=== PATIENT | male | born 1980 | race Caucasian/White ===

== ENCOUNTER 2016-10-27 22:43 | Emergency (ER) | payer OTHER ==
[~2016-10-27] VITALS: Ht 188 cm; Wt 151.0 kg
--- OUTSIDE RECORDS SUMMARY | 2016-10-27 22:50 | XMS REPORT ---
Author Author KRYSTEN BLAIR [facility], [place] eClinicalWorks Address Unknown Phone Unavailable Care Team Providers Care Leather Etcher Name Role Phone KRYSTEN BLAIR CP Unavailable Allergies, Adverse Reactions, Alerts Substance Reaction Event Type N.K.D.A. Info Not Available Non Drug Allergy Problems Problem Type Condition Code Onset Dates Condition Status Problem Seborrhea capitis 690.11 Active Assessment Tinea corporis B35.4 Active Problem Allergic rhinitis, cause unspecified 477.9 Active Assessment Skin infection L08.9 Active Medications Medication Code System Code Instructions Start Date End Date Status Dosage Bactrim DS [facility] [address]-93 800-160 MG Orally Twice a day December 22, 2015 January 01, 2016 1 tablet Diflucan [facility] [address]-22 100 MG Orally Once a day December 22, 2015December 1 tablet PredniSONE [facility] [address]-48 10 mg Orally twice a day December 22, 2015 December 27, 2015 1 tablet Loratadine [facility] [address]-38 10 MG Orally Once a day 1 tablet Procedures Procedure Coding System Code Date Office Visit, Est Pt., Level 3 CPT-4 09884 December 22, 2015 Vital Signs Date/Time: December 22, 2015 Temperature 99.1 F Weight 328.4 lbs Height 74 in BMI 42.16 Index Blood Pressure Diastolic 82 mmHg Blood Pressure Systolic 136 mmHg Cardiac Monitoring Heart Rate 92 bpm Results No Known Results Summary Purpose eClinicalWorks Submission
[2016-10-27] MEDS ORDERED: NS IV 1000 ML 1,000 ML IV ONE (22:56)
[2016-10-27 22:58] LABS: BASOPHILS % (AUTO) 0 % (0-10); EOSINOPHILS # (AUTO) 0.2 10^3/uL (0.0-0.3); EOSINOPHILS % (AUTO) 3 % (0-10); LYMPHOCYTES # (AUTO) 3.6 X 10^3 (1.0-4.0); LYMPHOCYTES % (AUTO) 46 % (12-44); MEAN CORPUSCULAR HEMOGLOBIN 31 PG (25-34); MEAN CORPUSCULAR HGB CONC 35 G/DL (32-36); MEAN CORPUSCULAR VOLUME 88 FL (80-99); MEAN PLATELET VOLUME 9.7 FL (7.4-10.4); MONOCYTES # (AUTO) 1.1 X 10^3 (0.0-1.0); MONOCYTES % (AUTO) 14 % (0-12); NEUTROPHILS % (AUTO) 38 % (42-75); PLATELET COUNT 211 10^3/uL (130-400); RED BLOOD COUNT 5.07 10^6/uL (4.35-5.85); RED CELL DISTRIBUTION WIDTH 12.9 % (10.0-14.5)
[2016-10-27] MEDS ORDERED: ASPIRIN 81 MG CHEW (CHILDREN'S ASA) PO ONE (23:00)
--- NOTE | 2016-10-27 23:00 | ED Chest Pain ---
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 Pt reports episode sharp/tingling CP at onset. Pt denies CP at this time. Pt reports having fever for past 2 days. Nursing Sepsis Screen: Possible Sepsis Risk Source: patient Exam Limitations: no limitations History of Present Illness Time seen by provider: 22:50 Initial Comments Here with chest tightness and difficulty breathing and over the last 30 minutes. Reports that he's had intermittent fevers over the last 2 days and he has nasal congestion and difficulty breathing related to that. Denies nausea or vomiting. Does feel hot currently and feels anxious. States he does have anxiety disorder. Timing/Duration: getting worse, changing over time, 2-3 days Severity/Quality: moderate, tightness Location: central Radiation: no radiation Activities at Onset: none Prior CP/Workup: no prior chest pain ASA po AUDIT MACHINE OPERATOR: No NTG SL AUDIT MACHINE OPERATOR: No Associated Symptoms: No abdominal pain, No back pain, diaphoresis fever/ chills nausea/vomiting shortness of breath Allergies and Home Medications Allergies Coded Allergies: nickel (Unverified Allergy, Unknown, 10/27/16) Home Medications No Active Prescriptions or Reported Meds Review of Systems Constitutional: see HPI chills fever EENTM: See HPI Nose Congestion Throat Pain Respiratory: Cough Shortness of Air Cardiovascular: See HPI Chest Pain (tightness) Palpitations Gastrointestinal: See HPIDenies Diarrhea, NauseaDenies Vomiting Genitourinary: No Symptoms Reported Musculoskeletal: no symptoms reported Skin: no symptoms reported Psychiatric/Neurological: No Symptoms Reported All Other Systems Reviewed Negative Unless Noted: Yes Past Pbptmni-Jsntjo-Leqawq Hx Patient Social History Alcohol Use: Occasionally Uses Recreational Drug Use: No Recent Foreign Travel: No Contact w/Someone Who Travel: No Recent Infectious Disease Expo: No Recent Hopitalizations: No Seasonal Allergies Seasonal Allergies: No Surgeries HX Surgeries: Yes (hernia repair) Respiratory Hx Respiratory Disorders: No Cardiovascular Hx Cardiac Disorders: No Neurological Hx Neurological Disorders: No Reproductive System Sexually Transmitted Disease: No Genitourinary Hx Genitourinary Disorders: No Gastrointestinal Hx Gastrointestinal Disorders: No Musculoskeletal Hx Musculoskeletal Disorders: No Endocrine Hx Endocrine Disorders: No HEENT HX ENT Disorders: No Cancer Hx Cancer: No Psychosocial Hx Psychiatric Problems: No Integumentary HX Skin/Integumentary Disorder: No Blood Transfusions Hx Blood Disorders: No Reviewed Nursing Assessment Reviewed/Agree w Nursing PMH: Yes Family Medical History Significant Family History: No Pertinent Family Hx Physical Exam Vital Signs Vital Sign - Last 12Hours 10/27/16 22:45 Temp 98.6 Pulse 117 Resp 18 B/P 160/103 Pulse Ox 99 O2 Delivery Room Air Capillary Refill : Less Than 3 Seconds General Appearance: No Apparent Distress WD/WN HEENT: PERRL/EOMI Pharyngeal Erythema (mild) Other (moderate bilateral nasal congestion with erythema and clear rhinorrhea) Neck: Non Tender Supple Respiratory: Lungs Clear Normal Breath Sounds Cardiovascular: No Murmur Tachycardia Gastrointestinal: Non Tender Soft Extremity: Normal Inspection Normal Range of Motion Non Tender No Calf Tenderness No Pedal Edema Neurologic/Psychiatric: Alert Oriented x3 Skin: Normal Color Warm/Dry Progress/Results/Core Measures Results/Orders Lab Results Laboratory Tests Test 10/27/16 22:50 Range/Units Activated Partial Thromboplast Time 29 24-35 SEC Alanine Aminotransferase (ALT/SGPT) 49 0-55 U/L Albumin 3.9 3.2-4.5 G/DL Alkaline Phosphatase 64 40-136 U/L Anion Gap 15 H 5-14 MMOL/L Aspartate Amino Transf (AST/SGOT) 37 H 5-34 U/L BUN/Creatinine Ratio 15 Basophils # (Auto) 0.0 0.0-0.1 10^3/uL Basophils (%) (Auto) 0 0-10 % Blood Urea Nitrogen 17 7-18 MG/DL C-Reactive Protein High Sensitivity 1.44 H 0.00-0.50 MG/DL Calcium Level 9.3 8.5-10.1 MG/DL Carbon Dioxide Level 23 21-32 MMOL/L Chloride Level 101 98-107 MMOL/L Creatinine 1.14 0.60-1.30 MG/DL D-Dimer 0.70 H 0.00-0.49 UG/ML Eosinophils # (Auto) 0.2 0.0-0.3 10^3/uL Eosinophils (%) (Auto) 3 0-10 % Estimat Glomerular Filtration Rate > 60 Glucose Level 121 H 70-105 MG/DL Hematocrit 45 40-54 % Hemoglobin 15.5 13.3-17.7 G/DL INR Comment 1.1 0.8-1.4 Lymphocytes # (Auto) 3.6 1.0-4.0 X 10^3 Lymphocytes (%) (Auto) 46 H 12-44 % Magnesium Level 2.4 1.8-2.4 MG/DL Mean Corpuscular Hemoglobin 31 25-34 PG Mean Corpuscular Hemoglobin Concent 35 32-36 G/DL Mean Corpuscular Volume 88 80-99 FL Mean Platelet Volume 9.7 7.4-10.4 FL Monocytes # (Auto) 1.1 H 0.0-1.0 X 10^3 Monocytes (%) (Auto) 14 H 0-12 % Myoglobin 63.6 10.0-92.0 NG/ML Neutrophils # (Auto) 3.0 1.8-7.8 X 10^3 Neutrophils (%) (Auto) 38 L 42-75 % Platelet Count 211 130-400 10^3/uL Potassium Level 3.6 3.6-5.0 MMOL/L Prothrombin Time 13.5 12.2-14.7 SEC Red Blood Count 5.07 4.35-5.85 10^6/uL Red Cell Distribution Width 12.9 10.0-14.5 % Sodium Level 139 135-145 MMOL/L Total Bilirubin 0.6 0.1-1.0 MG/DL Total Protein 7.5 6.4-8.2 G/DL Troponin I < 0.30 <0.30 NG/ML White Blood Count 8.0 4.3-11.0 10^3/uL Micro Results Microbiology 10/27/16 Influenza Types A,B Antigen ([facility]IR[facility]AL[facility]) - Final, Complete My Orders Orders-ENEDINA BREWER MD Cbc With Automated Diff (10/27/16 22:50) Magnesium (10/27/16 22:50) Chest 1 View, Ap/Pa Only (10/27/16 22:50) Ekg Tracing (10/27/16 22:50) Cardiac Profile 1 (10/27/16 22:50) Comprehensive Metabolic Panel (10/27/16 22:50) Myoglobin Serum (10/27/16 22:50) Protime With Inr (10/27/16 22:50) Partial Thromboplastin Time (10/27/16 22:50) O2 (10/27/16 22:50) Monitor-Rhythm Ecg Trace Only (10/27/16 22:50) Lipid Panel (10/28/16 06:00) Aspirin Chewable Tablet (Baby Aspirin Ch (10/27/16 23:00) Saline Lock/Iv-Start (10/27/16 22:50) Hs C Reactive Protein (10/27/16 22:56) Fibrin Degradation Products (10/27/16 22:56) Influenza A And B Antigens (10/27/16 22:56) Saline Lock/Iv-Start (10/27/16 22:56) Ns Iv 1000 Ml (Sodium Chloride 0.9%) (10/27/16 22:56) Lorazepam Injection (Ativan Injection) (10/27/16 23:01) Ct Angio Chest W (10/27/16 23:24) Lorazepam Injection (Ativan Injection) (10/27/16 23:30) Lorazepam Injection (Ativan Injection) (10/27/16 23:30) Iohexol Injection (Omnipaque 350 Mg/Ml 1 (10/28/16 00:00) Ns (Ivpb) (Sodium Chloride 0.9% Ivpb Bag (10/28/16 00:00) Dexamethasone Pf Injection (Decadron Pf (10/28/16 00:47) Albuterol Pre-Mix Nebs (Rt) (Proventil P (10/28/16 00:47) Svn Sm Volume Nebulizer Rt-Rfs (10/28/16 00:47) Rx-Albuterol Inhaler (Rx-Ventolin Hfa) (10/28/16 00:47) Medications Given in ED Current Medications Medications Dose Ordered Sig/Jose Alfredo Route Start Time Stop Time Status Last Admin Dose Admin Aspirin 324 mg 324 mg ONCE ONCE PO 10/27/16 23:00 10/27/16 23:01 DC 10/27/16 23:05 324 MG Iohexol 100 ml ONCE ONCE IV 10/28/16 00:00 10/28/16 00:27 DC 10/27/16 23:58 100 ML Lorazepam 2 mg STK-MED ONCE .ROUTE 10/27/16 23:01 10/27/16 23:03 DC 10/27/16 23:05 0.5 MG Lorazepam 2 mg STK-MED ONCE .ROUTE 10/27/16 23:30 10/27/16 23:32 DC 10/27/16 23:35 1 MG Sodium Chloride 100 ml ONCE ONCE IV 10/28/16 00:00 10/28/16 00:27 DC 10/27/16 23:58 80 ML Sodium Chloride 1,000 ml @ 0 mls/hr Q0M ONCE IV 10/27/16 22:56 10/27/16 22:58 DC 10/27/16 23:05 999 MLS/HR Vital Signs/I&O Vital Sign - Last 12Hours 10/27/16 22:45 Temp 98.6 Pulse 117 Resp 18 B/P 160/103 Pulse Ox 99 O2 Delivery Room Air Blood Pressure Mean: 122 Progress Note : Progress Note Seen and evaluated. IV, labs, EKG and chest x-ray ordered. Normal saline 1 L bolus. Ativan 0.5 mg IV. D-dimer elevated so CT angiogram chest ordered. Patient still with some anxiety. Ativan 1 mg IV to assist with tolerating CT scan. Monitor patient. 0045: Albuterol ordered. Albuterol MDI to go ordered. Decadron 10 mg IV. Discharged home with return precautions. Patient family verbalized understanding instructions and agreement with plan. ECG Initial ECG Impression Date: Oct 27, 2016 Initial ECG Impression Time: 22:46 Initial ECG Rate: 1116 Initial ECG Rhythm: S.Tach Comment Sinus tachycardia with normal axis but rightward. No evidence of ST elevation [place]. No previous available for comparison. Interpreted by me. Diagnostic Imaging Diagonstic Imaging: Xray Plain Films/CT/US/NM/MRI: chest Comments No acute findings Diagonstic Imaging: CT Plain Films/CT/US/NM/MRI: chest Comments CT angiogram chest. Evaluation for pulmonary embolus is limited by timing of the contrast bolus. No central pulmonary embolus, thoracic aortic dissection, effusion or consolidation noted. Mild bilateral peribronchial thickening is compatible with airway disease. Minimal dependent density in the right lung bases compatible with atelectasis or scar. Per statrad reading. Departure Impression Impression: Primary Impression: Bronchitis Additional Impression: Anxiety Disposition: 01 HOME, SELF-CARE Condition: Improved Departure-Patient Inst. Decision time for Depature: 00:52 Referrals: [facility] (PCP/Family) Primary Care Physician Patient Instructions: Acute Bronchitis, Adult (DC), Anxiety, Adult (DC) Add. Discharge Instructions: All discharge instructions reviewed with patient and/or family. Voiced understanding. Use albuterol inhaler 2 puffs every 4 hours as needed for wheezing. You may use Afrin nasal spray or the generic, 12 hour relief, 2 sprays to each nostril twice daily for 3 days only and then stop. He may take ibuprofen 800 mg every 8 hours as needed for pain or fever. You may take Tylenol 1000 mg every 8 hours as needed for pain or fever. Drink plenty of fluids. Scripts No Active Prescriptions or Reported Meds ENEDINA BREWER MD Oct 27, 2016 22:59
[2016-10-27] MEDS: LORazepam INJ 2 MG/ML (ATIVAN) VIAL ONE ×2 (23:05→23:06)
[2016-10-27 23:07] LABS: INR 1.1 (0.8-1.4); PROTHROMBIN TIME PATIENT 13.5 SEC (12.2-14.7)
[2016-10-27 23:18] LABS: ALANINE AMINOTRANSFERASE 49 U/L (0-55); ALBUMIN 3.9 G/DL (3.2-4.5); ANION GAP 15 MMOL/L (5-14); ASPARTATE AMINO TRANSFERASE 37 U/L (5-34); BILIRUBIN,TOTAL 0.6 MG/DL (0.1-1.0); BLOOD UREA NITROGEN 17 MG/DL (7-18); BUN/CREATININE RATIO 15; CALCIUM 9.3 MG/DL (8.5-10.1); CARBON DIOXIDE 23 MMOL/L (21-32); CHLORIDE 101 MMOL/L (98-107); CREATININE SERUM 1.14 MG/DL (0.60-1.30); GFR ESTIMATED > 60; GLUCOSE 121 MG/DL (70-105); MAGNESIUM 2.4 MG/DL (1.8-2.4); POTASSIUM 3.6 MMOL/L (3.6-5.0); SODIUM 139 MMOL/L (135-145); TOTAL PROTEIN 7.5 G/DL (6.4-8.2)
[2016-10-27 23:22] LABS: MYOGLOBIN SERUM 63.6 NG/ML (10.0-92.0)
[2016-10-27] MEDS ORDERED: LORazepam INJ 2 MG/ML (ATIVAN) VIAL ONE (23:30)
[2016-10-27] MEDS ORDERED: LORazepam INJ 2 MG/ML (ATIVAN) VIAL IVP ONE (23:30)
[2016-10-28] MEDS ORDERED: IOHEXOL 350 MG/ML 100 ML (OMNIPAQUE 350) VIAL IV ONE
[2016-10-28] MEDS ORDERED: NS 100 ML (IVPB) BAG IV ONE
[2016-10-28] MEDS ORDERED: RX-ALBUTEROL INHALER (VENTOLIN HFA) 18 GM IH STA (00:47)
[2016-10-28] MEDS ORDERED: DEXAMETHASONE PF 10 MG/ML (DECADRON) VIAL IV STA (00:47)
[2016-10-28] MEDS ORDERED: RT-ALBUTEROL SULF 2.5 MG/3 ML PRE-MIX VIAL INH STA (00:47)
[2016-10-28] MEDS ORDERED: RX-ALBUTEROL INHALER (PROAIR) 8 GM IH ONE (00:54)
[2016-10-28 01:59] VITALS: BP 127/77
--- NOTE | 2016-10-28 06:30 | Diagnostic Imaging Report ---
INDICATION: Shortness of breath. COMPARISON: None FINDINGS: Single frontal view of the chest is obtained. Heart size is normal. The pulmonary vessels appear unremarkable. No pneumothorax, mediastinal widening or pleural fluid. Lungs are clear. IMPRESSION: Negative chest. Dictated by: Dictated on workstation # [id number]
--- NOTE | 2016-10-28 06:41 | Diagnostic Imaging Report ---
PROCEDURE: CT angiography of the chest with contrast. TECHNIQUE: Multiple contiguous axial images were obtained through the chest after uneventful bolus administration of intravenous contrast. Reconstructed CTA MIP acquisitions were also performed. INDICATION: Elevated D-dimer and shortness of breath. FINDINGS: The evaluation for pulmonary embolus is limited secondary to poor contrast bolus timing. No large central emboli are demonstrated. Thoracic aorta appears unremarkable. The thyroid gland appears normal. There is no mediastinal or hilar adenopathy. There is no pneumothorax or pleural fluid. There is minimal atelectasis or scarring at the right lung base. Minimal subtle thickening of the central airways may be related to bronchitis but is nonspecific. No focal pneumonia is suspected. Osseous structures appear unremarkable. There is diffuse fatty change of the liver. There is a tiny (8 mm) enhancing lesion in the anterior right hepatic lobe, nonspecific but likely benign. IMPRESSION: 1. No evidence of pulmonary embolus, however, evaluation is limited due to poor contrast bolus timing. 2. Minimal thickening of the central airways and interstitium possibly related to bronchitis. Correlate clinically. 3. No additional acute abnormality is seen. Agree with [facility] interpretation Dictated by: Dictated on workstation # [id number]
== END 2016-10-28 01:59 | disposition home or self-care (01) ==
LOC: ER 22:45
DX: J40 Bronchitis, not specified as acute or chronic (principal); F41.9 Anxiety disorder, unspecified
CPT/HCPCS: 36415; 71010; 71275; 80053; 83735; 83874; 84484; 85025; 85379; 85610; 85730; 86141; 87804; 93005; 93041; 94640; 96361; 96374; 96375

== ENCOUNTER 2017-08-01 08:53 | Emergency (ER) | payer SELFPAY ==
[~2017-08-01] VITALS: Ht 185.4 cm; Wt 140.6 kg
--- NOTE | 2017-08-01 09:27 | ED General ---
General Chief Complaint: Neurological Problems Stated Complaint: NUMBNESS IN FINGERS WHEN AWAKENING Nursing Triage Note: AMBULATED TO ROOM 07 WITH COMPLAINTS OF BILAT ARM AND HAND NUMBESS WHEN WAKING UP IN THE AM FOR X5 DAYS. Nursing Sepsis Screen: No Definite Risk Source of Information: Patient Exam Limitations: No Limitations History of Present Illness Time Seen by Provider: 09:07 Initial Comments Here with report of intermittent hand and arm numbness. States it occurs when he wakes up and has been going on for the last 5 days. Does report that he was doing a lot of heavy lifting last week and this may have exacerbated the problem. He also had a neck strain last week on the right side. He does suffer from anxiety and admits that his anxiety may be upper little bit about this. Denies weakness or other concerns. Timing/Duration: 4-5 Days, Intermittent Modifying Factors: improves with Rest Associated Systoms: No Chest Pain, No Cough, No Fever/Chills, No Nausea/ Vomiting, No Shortness of Air, No Weakness Allergies and Home Medications Allergies Coded Allergies: nickel (Unverified Allergy, Unknown, 10/27/16) Home Medications No Active Prescriptions or Reported Meds Constitutional: see HPI, No chills, No fever Respiratory: no symptoms reported Cardiovascular: no symptoms reported Gastrointestinal: no symptoms reported Musculoskeletal: see HPI, muscle stiffness (right-sided tenderness), No muscle weakness Psychiatric/Neurological: Tingling, Denies Weakness Past Ejgsjul-Bpmwhb-Lnaibv Hx Patient Social History Alcohol Use: Occasionally Uses Recreational Drug Use: No Smoking Status: Never a Smoker Recent Foreign Travel: No Contact w/Someone Who Travel: No Recent Infectious Disease Expo: No Recent Hopitalizations: No Seasonal Allergies Seasonal Allergies: No Surgeries History of Surgeries: Yes (hernia repair) Respiratory History of Respiratory Disorde: No Cardiovascular History of Cardiac Disorders: No Neurological History of Neurological Disord: No Reproductive System Sexually Transmitted Disease: No Genitourinary History of Genitourinary Disor: No Gastrointestinal History of Gastrointestinal Di: No Musculoskeletal History of Musculoskeletal Dis: No Endocrine History of Endocrine Disorders: No HEENT History of HEENT Disorders: No Cancer History of Cancer: No Psychosocial History of Psychiatric Problem: Yes Behavioral Health Disorders: Anxiety Integumentary History of Skin or Integumenta: No Blood Transfusions History of Blood Disorders: No Reviewed Nursing Assessment Reviewed/Agree w Nursing PMH: Yes Family Medical History Significant Family History: No Pertinent Family Hx Physical Exam Vital Signs Vital Sign - Last 12Hours 08/01/17 09:04 Temp 98.0 Pulse 83 Resp 18 B/P (MAP) 136/82 (100) Pulse Ox 97 Capillary Refill : Less Than 3 Seconds General Appearance: No Apparent Distress, WD/WN HEENT: PERRL/EOMI, Pharynx Normal, Other (moderate bilateral nasal congestion right greater than left with erythema and clear rhinorrhea.) Neck: Supple, Tender Lateral (right-sided) Respiratory: Lungs Clear, Normal Breath Sounds Cardiovascular: Regular Rate, Rhythm, No Murmur Back: Normal Inspection, No CVA Tenderness, No Vertebral Tenderness Extremity: Normal Inspection, Normal Range of Motion, Non Tender Neurologic/Psychiatric: Alert, Oriented x3, No Motor/Sensory Deficits, Normal Mood/Affect, manager flight II-XII Norm as Tested Skin: Normal Color, Warm/Dry Progress/Results/Core Measures Suspected Sepsis Recent Fever Within 48 Hours: No Infection Criteria Present: None New/Unexplained Altered Menta: No Sepsis Screen: No Definite Risk Sepsis Diagnosis: SIRS Temperature:98.0 Pulse: 83 Respiratory Rate: 18 Blood Pressure 136 /82 Mean: 100 Laboratory Tests 08/01/17 09:32: Creatinine 0.82 Results/Orders Lab Results Laboratory Tests Test 08/01/17 09:32 Range/Units Sodium Level 140 135-145 MMOL/L Potassium Level 4.0 3.6-5.0 MMOL/L Chloride Level 107 98-107 MMOL/L Carbon Dioxide Level 24 21-32 MMOL/L Anion Gap 9 5-14 MMOL/L Blood Urea Nitrogen 11 7-18 MG/DL Creatinine 0.82 0.60-1.30 MG/DL Estimat Glomerular Filtration Rate > 60 BUN/Creatinine Ratio 13 Glucose Level 139 H 70-105 MG/DL Calcium Level 9.3 8.5-10.1 MG/DL My Orders Orders - ENEDINA BREWER MD Basic Metabolic Panel (08/01/17 09:10) Vital Signs/I&O Vital Sign - Last 12Hours 08/01/17 09:04 Temp 98.0 Pulse 83 Resp 18 B/P (MAP) 136/82 (100) Pulse Ox 97 Capillary Refill : Less Than 3 Seconds Blood Pressure Mean: 100 Progress Note : Progress Note Seen and evaluated. Chemistry panel ordered due to history of prediabetes per the patient. Anticipate steroids for the next strain with questionable radiculopathy. This may be a carpal tunnel equivalent although seems to be rotating sides. Blood pressure is okay today. Pending chemistry panel. 1025: Blood glucose is slightly elevated. I'll have him follow-up with his doctor for recheck and further evaluation related to this. I still think steroids are indicated. He can do nonsteroidal anti-inflammatories as well. Discharged home with return precautions. Patient verbalize understanding instructions and agreement with plan. Departure Impression Impression: Primary Impression: Upper respiratory infection Qualified Codes: J06.9 - Acute upper respiratory infection, unspecified Additional Impression: Cervical radiculopathy Disposition: HOME, SELF-CARE Condition: Stable Departure-Patient Inst. Decision time for Depature: 10:29 Referrals: [facility] (PCP) Primary Care Physician TATUM DANIELSON APRN (Family) Primary Care Physician Patient Instructions: Cervical Muscle Strain (DC), Radiculopathy (DC), Viral Upper Respiratory Infection, Adult (DC) Add. Discharge Instructions: All discharge instructions reviewed with patient and/or family. Voiced understanding. Your random blood glucose testing today was 139. This is slightly above normal. This may become more elevated while on steroids which is typical. You should limit sugary snacks and fluids, especially while taking steroids. Follow -up with your doctor related to this within the next week or so. Also follow- up related to the tingling in the hands. This should improve over the next week. Take medications as directed. You may take ibuprofen 800 mg every 8 hours as needed for pain or tingling. Return for worse pain, fever, vomiting, weakness, breathing problems or other concerns as needed. Scripts Prednisone (Prednisone) 20 Mg Tab 40 MG PO DAILY, #14 TAB 0 Refills Prov: ENEDINA BREWER MD 08/01/17 ENEDINA BREWER MD Aug 01, 2017 09:27
[2017-08-01 09:57] LABS: ANION GAP 9 MMOL/L (5-14); BLOOD UREA NITROGEN 11 MG/DL (7-18); BUN/CREATININE RATIO 13; CALCIUM 9.3 MG/DL (8.5-10.1); CARBON DIOXIDE 24 MMOL/L (21-32); CHLORIDE 107 MMOL/L (98-107); CREATININE SERUM 0.82 MG/DL (0.60-1.30); GFR ESTIMATED > 60; GLUCOSE 139 MG/DL (70-105); SODIUM 140 MMOL/L (135-145)
[2017-08-01] MEDS ORDERED: PRD20T PO (10:32)
[2017-08-01 10:40] VITALS: BP 147/95
== END 2017-08-01 10:40 | disposition home or self-care (01) ==
LOC: EDUNIT# 08:53 → ER 08:55
DX: J06.9 Acute upper respiratory infection, unspecified (principal); M54.12 Radiculopathy, cervical region; F41.9 Anxiety disorder, unspecified; Z87.19 Personal history of other diseases of the digestive system
CPT/HCPCS: 36415; 80048; 99283

== ENCOUNTER → 2018-11-11 | Outpatient (CLI) | payer BC ==
[~2018-11-11] MED LIST: PRD20T PO
== END | disposition home or self-care (01) ==
LOC: PREOP 05:38
PROVIDERS: ATTEND Surgery
DX: Z01.818 Encounter for other preprocedural examination (principal)

== ENCOUNTER 2020-05-05 06:41 | Outpatient (CLI) | payer BC ==
[~2020-05-05] VITALS: Ht 187 cm; Wt 143.1 kg
[2020-05-05] MEDS ORDERED: MULT-1136 PO (13:17)
[2020-05-05] MEDS ORDERED: LISI10TA2 PO (13:17)
[2020-05-05] MEDS ORDERED: FLAX100031 PO (13:17)
== END 2020-05-05 13:23 | disposition home or self-care (01) ==
LOC: PREOP 06:41
PROVIDERS: ATTEND Surgery
DX: Z01.818 Encounter for other preprocedural examination (principal)

== ENCOUNTER 2020-05-10 10:39 | Day surgery (SDC) | payer BC ==
[~2020-05-10] VITALS: Ht 189 cm; Wt 143.0 kg
[~2020-05-10 10:39] MED LIST changes: +FLAX100031 PO; +LISI10TA2 PO; +MULT-1136 PO
[2020-05-10] MEDS ORDERED: LACTATED RINGERS 1,000 ML IV ONE (10:47)
[2020-05-10] MEDS ORDERED: LACTATED RINGERS 1,000 ML IV STA (10:54)
--- NOTE | 2020-05-10 10:55 | Progress Note-Pre Operative ---
Pre-Operative Progress Note H&P Reviewed The H&P was reviewed, patient examined and no changes noted. Time Seen by Provider: 10:54 Date H&P Reviewed: May 10, 2020 Time H&P Reviewed: 10:54 Pre-Operative Diagnosis: Rectal pain, Rectal bleed DI BROWNE DO May 10, 2020 10:55
[2020-05-10 11:03] VITALS: BP 119/80
[2020-05-10] MEDS ORDERED: MIDAZOLAM 2 MG/2 ML (VERSED) VIAL ONE ×2 (11:06→11:14)
[2020-05-10] MEDS ORDERED: proPOfol 200 MG/20 ML (DIPRIVAN) VIAL IV ONE (11:06)
[2020-05-10 11:35] VITALS: BP 136/86
--- NOTE | 2020-05-10 11:38 | Progress Note-Post Operative ---
Post-Operative Progess Note Surgeon (s)/Dental Hygiene Administrative Assistant (s) Surgeon DI BROWNE DO Dental Hygiene Administrative Assistant: SUSAN Wheeler Pre-Operative Diagnosis Rectal pain, Rectal bleed Post-Operative Diagnosis Sigmoid polyp int hemorrhoids Anal fissure Procedure & Operative Findings Date of Procedure 05/10/20 Procedure Performed/Findings Colon with snare Anesthesia Type IV sedation by Anesthesia Estimated Blood Loss Estimated blood loss (mL): scant Specimens/Packing Specimens Removed sigmoid polyp DI BROWNE DO May 10, 2020 11:38
--- NOTE | 2020-05-10 11:39 | Endoscopy Discharge Instruct ---
Endo Procedure/Findings Findings 1.: Polyp 2.: Internal Hemorrhoids 3.: Other Findings (Anal fissure) Discharge Instructions - Activity: You might feel a little sleepy until tomorrow. This is due to the medicine you received to relax you. Until tomorrow, you should: NOT drive a car, operate machinery or power tools. NOT drink any alcoholic beverages. NOT make any important decisions or sign importortant papers. Do not return to work until tomorrow, unless otherwise instructed. Resume previous activities tomorrow. Diet: Start by taking liquids. If you tolerate liquids, advance to solid food. 1.: Colonscopy in 5 years Notify Physician - If you experience excessive bleeding, unusual abdominal pain, fever, or chest pain, contact your doctor immediately. DI BROWNE DO May 10, 2020 11:39
[2020-05-10 11:40] VITALS: BP 130/62
[2020-05-10 11:45] VITALS: BP_SYST 130; BP_DIAS 62; BP_DIAS 65
--- NOTE | 2020-05-10 12:40 | Anesthesia-General Post-Op ---
MAC Patient Condition Mental Status/LOC: Same as Preop Cardiovascular: Satisfactory Nausea/Vomiting: Absent Respiratory: Satisfactory Pain: Controlled Complications: Absent Post Op Complications Complications None Follow Up Care/Instructions Patient Instructions None needed. Anesthesiology Discharge Order Discharge Order Patient is doing well, no complaints, stable vital signs, no apparent adverse anesthesia problems. No complications reported per nursing. MARISOL BAKER CRNA May 10, 2020 12:40
--- NOTE | 2020-05-11 04:40 | OPERATIVE REPORT ---
DATE OF SERVICE: 05/10/2020 PREOPERATIVE DIAGNOSIS: Rectal bleeding and rectal pain. POSTOPERATIVE DIAGNOSES: Colon polyp, internal hemorrhoids and anal fissure. PROCEDURE: Colonoscopy with snare polypectomy. SURGEON: Rob Caldwell DO SKETCH MAKER: Carla Stern MS3. ANESTHESIA: IV sedation by anesthesiologist. SPECIMEN: Polyp from the sigmoid colon. BLOOD LOSS: Scant. FLUIDS: Per anesthesia. POSTOPERATIVE CONDITION: Stable. INDICATION FOR PROCEDURE: The patient is a 39-year-old male who has been complaining of rectal pain, rectal bleeding, needed a workup. FINDINGS: The patient had a polyp in the sigmoid colon. He also had some internal hemorrhoids, probably grade I to II and an anal fissure. PROCEDURE NOTE: After informed consent was obtained, the patient was brought to the endoscopy suite, placed in bed in left lateral decubitus position. He was administered IV sedation by the anesthesiologist who then monitored his vitals the entire time, heart rate, blood pressure and pulse ox and the scope was inserted, pushed all the way about 150 cm, able to get to the cecum, took a picture of appendiceal orifice, noted the ileocecal valve and then slowly withdrew the scope insufflating to look circumferential spence looking the cecum, up the ascending colon to the hepatic flexure, then down the transverse colon, splenic flexure, then into the descending colon and finally down in the sigmoid. In the sigmoid, saw a polyp, did snare polypectomy of this and then continued down into the rectum, retroflexed in the rectal vault, saw some internal hemorrhoids, took a picture of this. Pulled the scope out, red and then everted the anus and saw anal fissures, took a picture. The patient was then recovered in endoscopy suite. Job ID: [id number] DocumentID: [id number] Dictated Date: 05/10/2020 18:31:21 Erosion Control Specialist Date: 05/11/2020 04:39:31 Dictated By: ROB CALDWELL DO
== END 2020-05-10 11:50 | disposition home or self-care (01) ==
LOC: ENDO 10:39
PROVIDERS: ATTEND Surgery
DX: K63.5 Polyp of colon (principal); K64.8 Other hemorrhoids; K60.2 Anal fissure, unspecified; I10 Essential (primary) hypertension; Z79.899 Other long term (current) drug therapy; Z87.891 Personal history of nicotine dependence; E66.01 Morbid (severe) obesity due to excess calories; Z68.41 Body mass index [BMI] 40.0-44.9, adult; Z88.2 Allergy status to sulfonamides
CPT/HCPCS: 88305

== ENCOUNTER 2021-03-26 11:41 | Observation (INO) | payer BC ==
[~2021-03-26] VITALS: Ht 185 cm; Wt 142.0 kg
[~2021-03-26 11:41] MED LIST changes: -LISI10TA2 PO; +LISI10TA25 PO
[2021-03-26] MEDS ORDERED: NS IV 1000 ML 1,000 ML IV SCH ×2 (12:00→13:45)
[2021-03-26] MEDS ORDERED: fentaNYL INJ 100 MCG/2 ML AMP IVP ONE (12:00)
--- NOTE | 2021-03-26 12:07 | ED Abdominal Pain ---
General Stated Complaint: SOA/ABD PAIN Source of Information: Patient Exam Limitations: No Limitations History of Present Illness Date Seen by Provider: Mar 26, 2021 Time Seen by Provider: 11:50 Initial Comments Patient is a 40-year-old male who presents to the emergency department today with a chief complaint of diffuse and epigastric upper abdominal pain. Onset a couple of days ago it has waxed and waned in severity at its worst a "9" currently a "8". He is nauseous but has not had any vomiting. He had a bowel movement this morning that was softer than normal. He states it was a little bit odd color but denies black or bloody stool. No fevers or chills. He feels little shortness of breath with the pain. Moving around makes his pain worse he has had a difficult time finding a position of comfort. Denies any urinary complaints or bloody urine. Denies numbness weakness or tingling in his lower extremities other than the normal. Patient states that the pain radiates straight into his back. He is Covid vaccinated and has no Covid concerns at this time. He has had a hernia repair on his abdomen but that is his only surgery. No family history of gallstones that he is aware of. All other review of systems reviewed and negative except as stated. Timing/Duration: 1-2 Days Severity/Quality: Severe, Aching, Full Location: Epigastric, Generalized Abdomen Radiation: Back Activities at Onset: None Associated Symptoms: Back Pain, Nausea/Vomiting, Shortness of Air Allergies and Home Medications Allergies Coded Allergies: Sulfa (Sulfonamide Antibiotics) (Verified Allergy, Mild, 05/05/20) nickel (Unverified Allergy, Unknown, 10/27/16) Home Medications Flaxseed Oil 1,000 Mg Capsule, 1,000 MG PO DAILY, (Reported) Lisinopril 10 Mg Tablet, 10 MG PO DAILY, (Reported) Multivitamin 1 Each Tablet, 1 EACH PO DAILY, (Reported) Patient Home Medication List Home Medication List Reviewed: Yes Review of Systems Review of Systems Constitutional: see HPI Respiratory: SOA at Rest Cardiovascular: No Symptoms Reported Gastrointestinal: Abdominal Pain Genitourinary: No Symptoms Reported Musculoskeletal: back pain Skin: no symptoms reported All Other Systems Reviewed Negative Unless Noted: Yes Past Jbrhgjx-Qwomdd-Xqboht Hx Seasonal Allergies Seasonal Allergies: Yes Past Medical History Surgeries: Yes (hernia repair, FINGER REPAIR, THYROID DUCT GLAND CYST REMOVED INFANT) Respiratory: No Cardiac: Yes Hypertension Neurological: No Sexually Transmitted Disease: No HIV/AIDS: No Genitourinary: No Gastrointestinal: Yes (BLOOD IN STOOLS) Chronic Constipation Musculoskeletal: No Endocrine: No HEENT: No Loss of Vision: Denies Hearing Impairment: Denies Cancer: No Psychosocial: Yes Anxiety Integumentary: No Blood Disorders: No Adverse Reaction/Blood Tranf: No (N/A) Family Medical History No Pertinent Family Hx Physical Exam Vital Signs Vital Signs - First Documented 03/26/21 11:47 Temp 37.1 Pulse 80 Resp 20 B/P (MAP) 135/94 (108) Pulse Ox 97 O2 Delivery Room Air Capillary Refill : Height/Weight/BMI Height: 6'1.00" Weight: 310lbs. oz. 140.790170mw; 40.03 BMI Method:Stated General Appearance: WD/WN, moderate distress, other (Diaphoretic) HEENT: PERRL/EOMI Respiratory: lungs clear, normal breath sounds, no respiratory distress, no accessory muscle use Cardiovascular: regular rate, rhythm, other (2+ bilateral radial pulses) Peripheral Pulses: 2+ Radial Pulses (R), 2+ Radial Pulses (L) Gastrointestinal: tenderness (Epigastric) Extremities: non-tender, normal inspection, no pedal edema Back: CVA tenderness (L) Neurologic/Psychiatric: no motor/sensory deficits, alert, normal mood/affect, oriented x 3 Skin: normal color, warm/dry Progress/Results/Core Measures Results/Orders Lab Results Laboratory Tests Test 03/26/21 12:40 Range/Units White Blood Count 11.1 H 4.3-11.0 10^3/uL Red Blood Count 5.07 4.30-5.52 10^6/uL Hemoglobin 15.6 13.3-17.7 g/dL Hematocrit 46 40-54 % Mean Corpuscular Volume 91 80-99 fL Mean Corpuscular Hemoglobin 31 25-34 pg Mean Corpuscular Hemoglobin Concent 34 32-36 g/dL Red Cell Distribution Width 12.4 10.0-14.5 % Platelet Count 237 130-400 10^3/uL Mean Platelet Volume 9.6 9.0-12.2 fL Immature Granulocyte % (Auto) 0 % Neutrophils (%) (Auto) 76 H 42-75 % Lymphocytes (%) (Auto) 13 12-44 % Monocytes (%) (Auto) 9 0-12 % Eosinophils (%) (Auto) 2 0-10 % Basophils (%) (Auto) 0 0-10 % Neutrophils # (Auto) 8.5 H 1.8-7.8 10^3/uL Lymphocytes # (Auto) 1.4 1.0-4.0 10^3/uL Monocytes # (Auto) 1.0 0.0-1.0 10^3/uL Eosinophils # (Auto) 0.2 0.0-0.3 10^3/uL Basophils # (Auto) 0.0 0.0-0.1 10^3/uL Immature Granulocyte # (Auto) 0.0 0.0-0.1 10^3/uL Sodium Level 140 135-145 MMOL/L Potassium Level 3.7 3.6-5.0 MMOL/L Chloride Level 104 98-107 MMOL/L Carbon Dioxide Level 26 21-32 MMOL/L Anion Gap 10 5-14 MMOL/L Blood Urea Nitrogen 9 7-18 MG/DL Creatinine 0.96 0.60-1.30 MG/DL Estimat Glomerular Filtration Rate 86 BUN/Creatinine Ratio 9 Glucose Level 135 H 70-105 MG/DL Calcium Level 9.3 8.5-10.1 MG/DL Corrected Calcium 9.1 8.5-10.1 MG/DL Total Bilirubin 0.6 0.1-1.0 MG/DL Aspartate Amino Transf (AST/SGOT) 19 5-34 U/L Alanine Aminotransferase (ALT/SGPT) 23 0-55 U/L Alkaline Phosphatase 70 40-136 U/L Total Protein 8.1 6.4-8.2 GM/DL Albumin 4.2 3.2-4.5 GM/DL Lipase 23 8-78 U/L My Orders Orders - EDE JOYA MD Cbc With Automated Diff (03/26/21 11:58) Comprehensive Metabolic Panel (03/26/21 11:58) Lipase (03/26/21 11:58) Ekg Tracing (03/26/21 11:58) Chest 1 View, Ap/Pa Only (03/26/21 11:58) Ed Iv/Invasive Line Start (03/26/21 11:58) Ns Iv 1000 Ml (Sodium Chloride 0.9%) (03/26/21 12:00) Fentanyl Inj (Sublimaze Injection) (03/26/21 12:00) Iohexol Injection (Omnipaque 350 Mg/Ml 1 (03/26/21 12:15) Received Contrast (Hold Metformin- Contr (03/26/21 12:15) Ns (Ivpb) (Sodium Chloride 0.9% Ivpb Bag (03/26/21 12:15) Promethazine Injection (Phenergan Injec (03/26/21 12:45) Ct Angio Chst/Abd/Pelv W (03/26/21 11:58) Ns Iv 1000 Ml (Sodium Chloride 0.9%) (03/26/21 13:45) Ondansetron Injection (Zofran Injectio (03/26/21 14:30) Dicyclomine Injection (Bentyl Injection) (03/26/21 14:30) Medications Given in ED Current Medications Medications Dose Ordered Sig/Jose Alfredo Route Start Time Stop Time Status Last Admin Dose Admin Dicyclomine HCl 20 mg ONCE ONCE IM 03/26/21 14:30 03/26/21 14:31 DC 03/26/21 14:29 20 MG Fentanyl Citrate 50 mcg ONCE ONCE IVP 03/26/21 12:00 03/26/21 12:01 DC 03/26/21 12:10 50 MCG Iohexol 100 ml ONCE ONCE IV 03/26/21 12:15 03/26/21 12:16 DC 03/26/21 14:00 100 ML Ondansetron HCl 8 mg ONCE ONCE IVP 03/26/21 14:30 03/26/21 14:31 DC 03/26/21 14:28 8 MG Promethazine HCl 25 mg ONCE ONCE IVP 03/26/21 12:45 03/26/21 12:46 DC 03/26/21 12:45 25 MG Sodium Chloride 100 ml ONCE ONCE IV 03/26/21 12:15 03/26/21 12:16 DC 03/26/21 14:01 80 ML Vital Signs/I&O 03/26/21 11:47 Temp 37.1 Pulse 80 Resp 20 B/P (MAP) 135/94 (108) Pulse Ox 97 O2 Delivery Room Air Progress Progress Note : Time: 13:27 Progress Note Patient is currently in CT. Has received Phenergan, nausea is improved. Initial ECG Impression Date: Mar 26, 2021 Initial ECG Impression Time: 12:11 Initial ECG Rate: 73 Initial ECG Rhythm: Normal Sinus Initial ECG Intervals: Normal Initial ECG Impression: Normal, Nonspecific Changes Diagnostic Imaging Diagonstic Imaging: CT Plain Films/CT/US/NM/MRI: chest, abdomen, pelvis Comments [facility] [employer] [place], [place] NAME: NILDA ALVARENGA JR [facility] REC#: [id number] PT STATUS: REG ER : 1980 PHYSICIAN: EDE JOYA MD ADMIT DATE: 03/26/21/ER Draft Date of Exam:03/26/21 CT ANGIO CHST/ABD/PELV W PROCEDURE: CT angiography of the chest with contrast and CT abdomen and pelvis with contrast. TECHNIQUE: Multiple contiguous axial images were obtained through the chest, abdomen and pelvis after administration of intravenous contrast. 3D MIP reconstructed CT angiography acquisitions of the aorta were then performed. Auto Exposure Controls were utilized during the CT exam to meet ALARA standards for radiation dose reduction. INDICATION: Nausea and epigastric pain. Studies performed to evaluate the aorta. CT angiogram chest: The ascending thoracic aorta is unremarkable and normal in caliber. Aortic arch is unremarkable. The descending thoracic aorta is unremarkable. No dissection is identified. Central pulmonary arteries are unremarkable. No pericardial or pleural fluid. No pulmonary infiltrates, nodules or masses are identified. CT angiogram abdomen and pelvis: Liver demonstrates some mild generalized low density consistent with hepatic steatosis. There is some mild gallbladder distention. In addition there appears to be some mild bessy-cholecystic inflammatory stranding. Possibility of cholecystitis cannot be excluded. No biliary ductal dilatation. Pancreas and spleen are unremarkable. No adrenal mass is identified. Kidneys are unremarkable. The abdominal aorta is normal in caliber. No dissection is identified. Small and large bowel loops are normal caliber. There is no obstruction. No free fluid or fluid collection. The bladder and prostate are unremarkable. There is a small fat-containing left inguinal hernia. IMPRESSION: 1. No evidence of thoracic aortic or abdominal aortic aneurysm or dissection. 2. No acute feature in the chest. 3. Mild gallbladder distention and pericholecystic inflammation, raising question of cholecystitis. Gallbladder ultrasound would be useful for further evaluation. 4. Hepatic steatosis. Dictated on workstation # [id number] Dict: 03/26/21 1408 Trans: 03/26/21 1413 CVB [id number] Interpreted by: MARIO ALVARADO MD Electronically signed by: [facility], [place] NAME: NILDA ALVARENGA JR [facility] REC#: [id number] PT STATUS: REG ER : 1980 PHYSICIAN: EDE JOYA MD ADMIT DATE: 03/26/21/ER Draft Date of Exam:03/26/21 CHEST 1 VIEW, AP/PA ONLY EXAMINATION: Chest 1 view HISTORY: Epigastric pain COMPARISON: 11/13/2016 FINDINGS: The lungs are clear without edema or pneumonia. No pleural effusion or pneumothorax. Heart size is normal. IMPRESSION: 1. Clear lungs. Dictated on workstation # [id number] Dict: 03/26/21 1354 Trans: 03/26/21 1355 CVB [id number] Interpreted by: JERICHO FRIEDMAN MD Electronically signed by: Departure Communication (Admissions) Time/Spoke to Admitting Phy: 14:[address] Caldwell - will be down to see Impression Primary Impression: Acute cholecystitis Additional Impressions: Abdominal pain Qualified Codes: R10.13 - Epigastric pain Essential hypertension Disposition: ADMITTED INPATIENT Condition: Stable Admissions Decision to Admit Reason: Admit from ER (General) Decision to Admit/Date: Mar 26, 2021 Time/Decision to Admit Time: 14:38 Departure-Patient Inst. Referrals: [facility] [place] (PCP/Family) Primary Care Physician EDE JOYA MD Mar 26, 2021 12:07
[2021-03-26] MEDS ORDERED: HOLD METFORMIN - RECEIVED CONTRAST 20 ML VIAL IV SCH (12:15)
[2021-03-26] MEDS ORDERED: NS 100 ML (IVPB) BAG IV ONE (12:15)
[2021-03-26] MEDS ORDERED: IOHEXOL 350 MG/ML 100 ML (OMNIPAQUE 350) VIAL IV ONE (12:15)
[2021-03-26] MEDS ORDERED: PROMETHAZINE INJ 25 MG/ML (PHENERGAN) AMP IVP ONE (12:45)
[2021-03-26 12:48] LABS: BASOPHILS % (AUTO) 0 % (0-10); EOSINOPHILS # (AUTO) 0.2 10^3/uL (0.0-0.3); EOSINOPHILS % (AUTO) 2 % (0-10); HEMATOCRIT 46 % (40-54); HEMOGLOBIN 15.6 g/dL (13.3-17.7); LYMPHOCYTES # (AUTO) 1.4 10^3/uL (1.0-4.0); LYMPHOCYTES % (AUTO) 13 % (12-44); MEAN CORPUSCULAR HEMOGLOBIN 31 pg (25-34); MEAN CORPUSCULAR HGB CONC 34 g/dL (32-36); MEAN CORPUSCULAR VOLUME 91 fL (80-99); MEAN PLATELET VOLUME 9.6 fL (9.0-12.2); MONOCYTES % (AUTO) 9 % (0-12); NEUTROPHILS # (AUTO) 8.5 10^3/uL (1.8-7.8); NEUTROPHILS % (AUTO) 76 % (42-75); PLATELET COUNT 237 10^3/uL (130-400); WHITE BLOOD COUNT 11.1 10^3/uL (4.3-11.0)
[2021-03-26 13:11] LABS: ALBUMIN 4.2 GM/DL (3.2-4.5); BILIRUBIN,TOTAL 0.6 MG/DL (0.1-1.0); CALCIUM 9.3 MG/DL (8.5-10.1); CREATININE SERUM 0.96 MG/DL (0.60-1.30); POTASSIUM 3.7 MMOL/L (3.6-5.0); TOTAL PROTEIN 8.1 GM/DL (6.4-8.2)
--- NOTE | 2021-03-26 13:55 | Diagnostic Imaging Report ---
EXAMINATION: Chest 1 view HISTORY: Epigastric pain COMPARISON: 11/13/2016 FINDINGS: The lungs are clear without edema or pneumonia. No pleural effusion or pneumothorax. Heart size is normal. IMPRESSION: 1. Clear lungs. Dictated by: Dictated on workstation # [id number]
--- NOTE | 2021-03-26 14:13 | Diagnostic Imaging Report ---
PROCEDURE: CT angiography of the chest with contrast and CT abdomen and pelvis with contrast. TECHNIQUE: Multiple contiguous axial images were obtained through the chest, abdomen and pelvis after administration of intravenous contrast. 3D MIP reconstructed CT angiography acquisitions of the aorta were then performed. Auto Exposure Controls were utilized during the CT exam to meet ALARA standards for radiation dose reduction. INDICATION: Nausea and epigastric pain. Studies performed to evaluate the aorta. CT angiogram chest: The ascending thoracic aorta is unremarkable and normal in caliber. Aortic arch is unremarkable. The descending thoracic aorta is unremarkable. No dissection is identified. Central pulmonary arteries are unremarkable. No pericardial or pleural fluid. No pulmonary infiltrates, nodules or masses are identified. CT angiogram abdomen and pelvis: Liver demonstrates some mild generalized low density consistent with hepatic steatosis. There is some mild gallbladder distention. In addition there appears to be some mild bessy-cholecystic inflammatory stranding. Possibility of cholecystitis cannot be excluded. No biliary ductal dilatation. Pancreas and spleen are unremarkable. No adrenal mass is identified. Kidneys are unremarkable. The abdominal aorta is normal in caliber. No dissection is identified. Small and large bowel loops are normal caliber. There is no obstruction. No free fluid or fluid collection. The bladder and prostate are unremarkable. There is a small fat-containing left inguinal hernia. IMPRESSION: 1. No evidence of thoracic aortic or abdominal aortic aneurysm or dissection. 2. No acute feature in the chest. 3. Mild gallbladder distention and pericholecystic inflammation, raising question of cholecystitis. Gallbladder ultrasound would be useful for further evaluation. 4. Hepatic steatosis. Dictated by: Dictated on workstation # [id number]
[2021-03-26] MEDS ORDERED: ONDANSETRON 4 MG/2 ML (SDV) Z0FRAN IVP ONE (14:30)
[2021-03-26] MEDS ORDERED: DICYCLOMINE 10 MG/ML (BENTYL) 2 ML AMP IM ONE (14:30)
[2021-03-26] MEDS ORDERED: ONDANSETRON 4 MG/2 ML (SDV) Z0FRAN IVP PRN (14:45)
--- NOTE | 2021-03-26 14:51 | History & Physical-Surgical ---
History of Present Illness History of Present Illness Reason for visit/HPI Surgery asked to admit regarding Acute Cholecystitis, possible cholelithiasis HPI per ED: Patient is a 40-year-old male who presents to the emergency department today with a chief complaint of diffuse and epigastric upper abdominal pain. Onset a couple of days ago it has waxed and waned in severity at its worst a "9" currently a "8". He is nauseous but has not had any vomiting. He had a bowel movement this morning that was softer than normal. He states it was a little bit odd color but denies black or bloody stool. No fevers or chills. He feels little shortness of breath with the pain. Moving around makes his pain worse he has had a difficult time finding a position of comfort. Denies any urinary complaints or bloody urine. Denies numbness weakness or tingling in his lower extremities other than the normal. Patient states that the pain radiates straight into his back. He is Covid vaccinated and has no Covid concerns at this time. He has had a hernia repair on his abdomen but that is his only surgery. No family history of gallstones that he is aware of. All other review of systems reviewed and negative except as stated. Timing/Duration: 1-2 Days Severity/Quality: Severe, Aching, Full Location: Epigastric, Generalized Abdomen Radiation: Back Activities at Onset: None Associated Symptoms: Back Pain, Nausea/Vomiting, Shortness of Air In the ER he started have intractable N/V and CTA (done for possible aneurysm) showed pericholecystic fluid and inflammation. Date of Admission 03/26/21 Time Seen by a Provider: 14:32 I consulted on this patient on 03/26/21 14:46 Attending Physician Admitting Physician [place] Consult Allergies and Home Medications Allergies Coded Allergies: Sulfa (Sulfonamide Antibiotics) (Verified Allergy, Mild, 05/05/20) nickel (Unverified Allergy, Unknown, 10/27/16) Home Medications Flaxseed Oil 1,000 Mg Capsule, 1,000 MG PO DAILY, (Reported) Lisinopril 10 Mg Tablet, 10 MG PO DAILY, (Reported) Multivitamin 1 Each Tablet, 1 EACH PO DAILY, (Reported) Patient Home Medication List Home Medication List Reviewed: Yes Past Juqscyp-Ypktne-Mylxdk Hx Patient Social History Smoking Status: Never a Smoker Former Smoker, Quit: May 05, 2010 2nd Hand Smoke Exposure: Yes Recent Hopitalizations: No Alcohol Use?: Yes Have you traveled recently?: No Seasonal Allergies Seasonal Allergies: Yes Surgeries History of Surgeries: Yes (hernia repair, FINGER REPAIR, THYROID DUCT GLAND CYST REMOVED INFANT,) Respiratory History of Respiratory Disorde: No Cardiovascular History of Cardiac Disorders: Yes Cardiac Disorders: Hypertension Neurological History of Neurological Disord: No Reproductive System Sexually Transmitted Disease: No HIV/AIDS: No Genitourinary History of Genitourinary Disor: No Gastrointestinal History of Gastrointestinal Di: Yes (BLOOD IN STOOLS) Gastrointestinal Disorders: Chronic Constipation Musculoskeletal History of Musculoskeletal Dis: No Endocrine History of Endocrine Disorders: No HEENT History of HEENT Disorders: No Loss of Vision: Denies Hearing Impairment: Denies Cancer History of Cancer: No Psychosocial History of Psychiatric Problem: Yes Behavioral Health Disorders: Anxiety Integumentary History of Skin or Integumenta: No Blood Transfusions History of Blood Disorders: No Adverse Reaction to a Blood Tr: No (N/A) Family Medical History Significant Family History: No Pertinent Family Hx Review of Systems Constitutional: malaise, weakness EENTM: No blurred vision, No double vision, No mouth swelling, No epistaxis Respiratory: No cough, No dyspnea on exertion, No hemoptysis, No short of breath Cardiovascular: No chest pain, No palpitations Gastrointestinal: abdominal pain (RUQ); No jaundice; loss of appetite, nausea, vomiting Genitourinary: No dysuria, No frequency, No hematuria Musculoskeletal: joint pain, joint swelling, muscle pain Skin: No change in color, No change in hair/nails Psychiatric/Neurological: Anxiety; Denies Depressed; Emotional Problems; Denies Seizure, Denies Tremors pt denies any hx of abnormal bleeding or bruising Physical Exam Vital Signs Vital Signs - First Documented 03/26/21 11:47 Temp 37.1 Pulse 80 Resp 20 B/P (MAP) 135/94 (108) Pulse Ox 97 O2 Delivery Room Air Capillary Refill : Less Than 3 Seconds Height, Weight, BMI Height: 6'1.00" Weight: 310lbs. oz. 140.654448ev; 41.00 BMI Method:Stated General Appearance: Mild Distress, Obese Eyes: Bilateral Eye PERRL, Bilateral Eye EOMI HEENT: Pharynx Normal, Moist Mucous Membranes; No Scleral Icterus (L), No Scleral Icterus (R) Neck: Non Tender, Supple Respiratory: Chest Non Tender, Lungs Clear, Normal Breath Sounds, No Accessory Muscle Use, No Respiratory Distress Cardiovascular: No Murmur, Tachycardia Gastrointestinal: No Organomegaly, No Pulsatile Mass, Soft, Tenderness (RUQ) Rectal: Deferred Back: No CVA Tenderness, No Vertebral Tenderness Extremity: Non Tender, No Calf Tenderness Neurologic/Psychiatric: Alert, Oriented x3, Normal Mood/Affect, carpenter/labor II-XII Norm as Tested Skin: Normal Color, Warm/Dry Lymphatic: No Adenopathy (neck, axilla or groin) Data Review Labs Laboratory Tests 03/26/21 12:40: White Blood Count 11.1H, Red Blood Count 5.07, Hemoglobin 15.6, Hematocrit 46, Mean Corpuscular Volume 91, Mean Corpuscular Hemoglobin 31, Mean Corpuscular Hemoglobin Concent 34, Red Cell Distribution Width 12.4, Platelet Count 237, Mean Platelet Volume 9.6, Immature Granulocyte % (Auto) 0, Neutrophils (%) (Auto) 76H, Lymphocytes (%) (Auto) 13, Monocytes (%) (Auto) 9, Eosinophils (%) (Auto) 2, Basophils (%) (Auto) 0, Neutrophils # (Auto) 8.5H, Lymphocytes # (Auto) 1.4, Monocytes # (Auto) 1.0, Eosinophils # (Auto) 0.2, Basophils # (Auto) 0.0, Immature Granulocyte # (Auto) 0.0, Sodium Level 140, Potassium Level 3.7, Chloride Level 104, Carbon Dioxide Level 26, Anion Gap 10, Blood Urea Nitrogen 9, Creatinine 0.96, Estimat Glomerular Filtration Rate 86, BUN/Creatinine Ratio 9, Glucose Level 135H, Calcium Level 9.3, Corrected Calcium 9.1, Total Bilirubin 0.6, Aspartate Amino Transf (AST/SGOT) 19, Alanine Aminotransferase (ALT/SGPT) 23, Alkaline Phosphatase 70, Total Protein 8.1, Albumin 4.2, Lipase 23 Radiology Draft Date of Exam:03/26/21 CT ANGIO CHST/ABD/PELV W PROCEDURE: CT angiography of the chest with contrast and CT abdomen and pelvis with contrast. TECHNIQUE: Multiple contiguous axial images were obtained through the chest, abdomen and pelvis after administration of intravenous contrast. 3D MIP reconstructed CT angiography acquisitions of the aorta were then performed. Auto Exposure Controls were utilized during the CT exam to meet ALARA standards for radiation dose reduction. INDICATION: Nausea and epigastric pain. Studies performed to evaluate the aorta. CT angiogram chest: The ascending thoracic aorta is unremarkable and normal in caliber. Aortic arch is unremarkable. The descending thoracic aorta is unremarkable. No dissection is identified. Central pulmonary arteries are unremarkable. No pericardial or pleural fluid. No pulmonary infiltrates, nodules or masses are identified. CT angiogram abdomen and pelvis: Liver demonstrates some mild generalized low density consistent with hepatic steatosis. There is some mild gallbladder distention. In addition there appears to be some mild bessy-cholecystic inflammatory stranding. Possibility of cholecystitis cannot be excluded. No biliary ductal dilatation. Pancreas and spleen are unremarkable. No adrenal mass is identified. Kidneys are unremarkable. The abdominal aorta is normal in caliber. No dissection is identified. Small and large bowel loops are normal caliber. There is no obstruction. No free fluid or fluid collection. The bladder and prostate are unremarkable. There is a small fat-containing left inguinal hernia. IMPRESSION: 1. No evidence of thoracic aortic or abdominal aortic aneurysm or dissection. 2. No acute feature in the chest. 3. Mild gallbladder distention and pericholecystic inflammation, raising question of cholecystitis. Gallbladder ultrasound would be useful for further evaluation. 4. Hepatic steatosis. Dictated on workstation # [id number] Dict: 03/26/21 1408 Trans: 03/26/21 1413 [facility] [id number] Interpreted by: MARIO ALVARADO MD Assessment/Plan Assessment/Plan Admission Diagonsis Acute Cholecystitis Admission Status: Observation Assessment/Plan Acute Cholecystitis Pt has been vomiting and is still nauseous, he is dehydrated and needs IV fluids. CT shows acute cholecystitis and would benefit from laparoscopic cholecystectomy. I will admit him, NPO after midnight (can try clears, he states he is thirsty), anti-emetics, pain control, consent for Laparoscopic Cholecystectomy with possible cholangiogram, possible open. I discussed the case with pt and his ; risks and complications not limited to pain, bleeding, infection, scar, damage to bowel or bile duct and need for further procedure. He agrees with GB surgery tomorrow. DI BROWNE DO Mar 26, 2021 14:51
[2021-03-26] MEDS ORDERED: morphine INJ 10 MG/ML 1ML (SYR OR VIAL) IVP STA (14:57)
[2021-03-26 16:00] VITALS: BP 151/85
[2021-03-26] MEDS: LACTATED RINGERS 1,000 ML IV SCH ×2 (17:12→19:47)
[2021-03-26] MEDS: morphine INJ 4 MG/ML 1 ML (VIAL/SYRINGE) IVP PRN ×3 (17:14→23:41)
[2021-03-26 19:57] VITALS: BP 134/68
[2021-03-26] MEDS: ACETAMINOPHEN 500 MG TAB (TYLENOL) PO PRN (20:11)
[2021-03-26 23:09] VITALS: BP 112/62
[2021-03-26] MEDS ORDERED: PIPERACILLIN/TAZOBACTAM (BULK) 4.5 GM in NS (IVPB) 100 ML IV SCH (23:15)
[2021-03-27] VITALS (12 sets, daily range): BP systolic 95–152; BP diastolic 38–84
[2021-03-27] MEDS ORDERED: PIPERACILLIN/TAZOBACTAM 4.5 GM in NS (IVPB) 100 ML IV ONE ×2
[2021-03-27] MEDS: LACTATED RINGERS 1,000 ML IV SCH ×5 (00:38→21:16)
[2021-03-27] MEDS: morphine INJ 4 MG/ML 1 ML (VIAL/SYRINGE) IVP PRN ×5 (02:32→22:35)
[2021-03-27] MEDS: PIPERACILLIN/TAZO 4.5 GM/NS 100 ML IV SCH ×6 (05:11→22:35)
[2021-03-27] MEDS ORDERED: LIDOCAINE/EPI 1%-1:100,000 (XYLOCAINE) 20ML ONE (08:43)
[2021-03-27] MEDS: PANTOPRAZOLE 40 MG (PROTONIX) VIAL IV SCH (09:01)
[2021-03-27] MEDS ORDERED: ceFAZolin INJECTION 3,000 MG in NS (IVPB) 100 ML IV ONE (09:15)
[2021-03-27] MEDS: LACTATED RINGERS 1,000 ML IV PRN ×2 (09:50→10:29)
[2021-03-27] MEDS ORDERED: ONDANSETRON 4 MG/2 ML (SDV) Z0FRAN ONE (09:57)
[2021-03-27] MEDS ORDERED: proPOfol 200 MG/20 ML (DIPRIVAN) VIAL IV ONE (09:57)
[2021-03-27] MEDS ORDERED: fentaNYL INJ 100 MCG/2 ML AMP ONE (09:57)
[2021-03-27] MEDS ORDERED: SEVOFLURANE (ULTANE) 15 ML INHAL SOLN ONE ×4 (09:57→12:07)
[2021-03-27] MEDS ORDERED: LIDOCAINE PF 2% 5 ML (XYLOCAINE) VIAL ONE (09:57)
[2021-03-27] MEDS ORDERED: MIDAZOLAM 2 MG/2 ML (VERSED) VIAL ONE (09:57)
[2021-03-27] MEDS ORDERED: IOHEXOL 300 MG/ML 30 ML (OMNIPAQUE 300) VIAL INJ ONE (11:00)
[2021-03-27] MEDS ORDERED: morphine INJ 10 MG/ML 1ML (SYR OR VIAL) IVP ONE (12:30)
[2021-03-27] MEDS ORDERED: LACTATED RINGERS 1,000 ML IV PRN (12:30)
[2021-03-27] MEDS ORDERED: ONDANSETRON 4 MG/2 ML (SDV) Z0FRAN IVP PRN (12:30)
[2021-03-27] MEDS ORDERED: fentaNYL INJ 100 MCG/2 ML AMP IVP ONE (12:30)
[2021-03-27] MEDS ORDERED: MEPERIDINE (DEMEROL) INJ 50 MG/ML IVP ONE (12:30)
--- NOTE | 2021-03-27 12:30 | Progress Note-Post Operative ---
Post-Operative Progess Note Surgeon (s)/Associate Director Finance (s) Surgeon DI BROWNE DO Associate Director Finance: NONE Pre-Operative Diagnosis Acute Anya/anya Post-Operative Diagnosis Gangrenous GB Procedure & Operative Findings Date of Procedure 03/27/21 Procedure Performed/Findings PROCEDURE: Laparoscopic cholecystectomy with intraoperative cholangiogram. COMPLICATIONS: None. PROCEDURE: The patient was taken to the operating suite and was prepped and draped in sterile fashion. A surgical pause was performed. Just superior to the umbilicus, a 12 mm incision was made. Dissection was taken down to the fascia, which was then scored and grasped with a Piotr and the abdomen was then entered. A 0 Vicryl suture was placed in a [id number]-[id number] fashion and a Schuster trocar was placed and secured. Pneumoperitoneum was achieved. A 5mm trochar place in the subxyphoid and 2 in the right upper quadrant. The gallbladder was buried under omentum which was stuck to the liver; this had to be carefully taken off with the [place] and bovie cautery. There was bile staining in the abdomen and as I was taking down the fat we could see that the Gallbladder was gangrenous. Able to grasp at the fundus and elevate the gallbladder; continuing to take down the adhesions. The gallbladder was gangrenous all the way down to Weaver's pouch and was friable; the instruments made holes in the gallbladder. Elected to place another 5mm port in the midline between supra-umbilical port and sub-xyphoid port. Then switched to a 5mm camera and brought a paddle in through the 12mm port to hold omentum and intestine out of the way so I could start dissectin out the cystic duct and artery. The cystic duct was found and a clip was placed on the distal portion which was then partially transected. An arrow catheter was inserted into the duct and the cholangiogram was then performed. No filling defects and contrast made its way into the duodenum. Catheter removed and lips were placed on proximal portion of the cystic duct and then the duct was then transected. Clips were placed along the proximal and distal portion of the cystic artery which was then transected. Hook cautery was used to dissect the gallbladder from the gallbladder fossa achieving hemostasis. To be safe a surgicell was placed in the fossa and then a [address] helenian Shane drain was brought out through the most lateral port and suture in place with 3-0 Nylone. The gallbladder was placed in an Endobag and removed through the 12 mm trocar site. The abdomen was then reinspected. Copious amounts of irrigation were used to irrigate the abdomen and there were no signs of active bleeding. Hemostasis had been achieved. The drain was placed in right lateral gutter and under the liver near the gallbladder fossa. The 12 mm fascial defect was then closed with 0 Vicryl suture that had been placed in a [id number] fashion. The abdomen was then desufflated, the trocars were removed. The abdomen was then washed and dried. The skin was then closed using 4-0 Monocryl in a subcuticular fashion. The abdomen was washed and dried and Skin Affix was place over incisions. Patient tolerated the procedure well without any complications and was taken to the recovery room in stable condition. Anesthesia Type GET Estimated Blood Loss Estimated blood loss (mL): less than 10ml Specimens/Packing Specimens Removed GB and contents DI BROWNE DO Mar 27, 2021 12:30
[2021-03-27] MEDS: ACETAMINOPHEN 500 MG TAB (TYLENOL) PO PRN (19:59)
--- NOTE | 2021-03-27 21:20 | Diagnostic Imaging Report ---
INDICATION: Nausea, epigastric pain. Undergoing cholecystectomy. FINDINGS: Single intraoperative cholangiogram images are submitted. There is cannulation of the extra hepatic biliary tree. Images demonstrate contrast opacification of the biliary system. Biliary tree is not significantly dilated. There was no persistent filling defect to indicate a retained stone. Flow was present into the duodenum. Fluoroscopy Time: 1 Number of Images Acquired: 20.6 seconds IMPRESSION: Negative laparoscopic cholangiogram. Dictated by: Dictated on workstation # [id number]
[2021-03-28 00:15] VITALS: BP 102/63
[2021-03-28] MEDS: morphine INJ 4 MG/ML 1 ML (VIAL/SYRINGE) IVP PRN ×2 (03:16→08:00)
[2021-03-28 03:46] VITALS: BP 140/78
[2021-03-28] MEDS: PIPERACILLIN/TAZO 4.5 GM/NS 100 ML IV SCH ×4 (05:56→14:00)
[2021-03-28] MEDS: LACTATED RINGERS 1,000 ML IV SCH ×2 (05:59→12:42)
[2021-03-28 07:07] VITALS: BP 125/79
[2021-03-28] MEDS: PANTOPRAZOLE 40 MG (PROTONIX) VIAL IV SCH (08:00)
--- NOTE | 2021-03-28 09:32 | Anesthesia-General Post-Op ---
General Patient Condition Mental Status/LOC: Same as Preop Cardiovascular: Satisfactory Nausea/Vomiting: Absent Respiratory: Satisfactory Pain: Controlled Complications: Absent Post Op Complications Complications None Follow Up Care/Instructions Patient Instructions None needed. Anesthesia/Patient Condition Patient Condition Patient is doing well, no complaints, stable vital signs, no apparent adverse anesthesia problems. No complications reported per nursing. [place] [facility] [place] JOANNA LOPEZ CRNA Mar 28, 2021 09:32
[2021-03-28] MEDS ORDERED: FLAX10004 PO (10:33)
[2021-03-28 11:07] VITALS: BP 120/79
[2021-03-28 15:40] VITALS: BP 130/78
[2021-03-28] MEDS ORDERED: AMOX-358 PO (15:42)
[2021-03-28] MEDS ORDERED: ACHD5005 PO (15:42)
--- NOTE | 2021-03-28 15:44 | Discharge Inst-Surgical ---
Discharge Inst-Surgical Depart Medication/Instructions New, Converted or Re-Newed RX: Transmitted to Pharmacy Patient Instructions Follow up Appt: Make appointment for 1 week. [phone] Instructions: No lifting greater than 20 pounds. No strenuous activity. May shower in 24 hours, no tub bath or soaking. Use incentive spirometer at home as directed. No Smoking Skin/Wound Care: May remove bandages in am. You need to leave the Dermabond on incision it will fall off on it's own. Symptoms to Report: Appetite Changes, Extremity Discoloration, Numbness/Tingling, Swelling Increased, Bleeding Excessive, Eyesight Changes, Pain Increased, Urine Color Change, Constipation(Persistent), Fever over 101 degree F, Pain/Pressure in chest, Urinating Difficulty, Cough Up/Vomit Blood, Heart Beat Irreg/Pounding, Pain/Pressure in jaw, Cramps in feet or legs, Lightheadedness, Pain/Pressure in shoulder, Diarrhea(Persistent), Memory Changes Suddenly, Questions/Concerns, Weight gain consecutive days, Dizziness/Fainting, Nausea/Vomiting, Shortness of Breath, Weight gain over 2 pounds If questions or concerns contact your physician Or seek help at emergency department. Activity Activity as Tolerated: Yes Activity Instructions: Avoid Stress to Incision Driving Instructions: No Driving/Refer to Diet Discharge Diet: Avoid Fatty Foods, Low Fat/Low Cholesterol Diet After 24 Hours: Clear Liquid if Nauseous If Any Problems/Questions/Issu: Contact Your Physician, Go to Emergency Room Skin/Wound Care Infection Signs and Symptoms: Increased Redness, Foul Odor of Wound, Increased Drainage, Skin Itchy or Has a Rash, Increased Swelling, Temperature Above 101 F Wound Care Comment: Teach CONCHIS drain record output and care Bathing Instructions: Shower Stitches/Lyn/Dermabond Dis: Dermabond DI BROWNE DO Mar 28, 2021 15:44
--- NOTE | 2021-03-28 15:48 | Progress Note - Surgery ---
Subjective Time Seen by a Provider: 14:06 Subjective/Events-last exam Pt seen and examined, pain mostly controlled, passing gas. Would like to go home. Review of Systems Cardiovascular: No: Chest Pain, Palpitations Gastrointestinal: Abdominal Pain; No: Nausea, Vomiting Objective Exam Vital Signs Date Time Temp Pulse Resp B/P (MAP) Pulse Ox O2 Delivery O2 Flow Rate FiO2 03/28/21 15:40 36.4 111 20 130/78 (95) 90 Room Air 03/28/21 11:07 36.0 100 18 120/79 (93) 92 Room Air 03/28/21 08:00 92 Nasal Cannula 2.00 03/28/21 07:07 37.2 103 18 125/79 (94) 94 Nasal Cannula 3.00 03/28/21 03:46 36.5 98 20 140/78 (98) 96 Nasal Cannula 3.00 03/28/21 00:15 36.7 95 18 102/63 (76) 95 Nasal Cannula 2.00 03/27/21 20:30 37.6 03/27/21 20:00 37.7 107 18 106/67 (80) 92 Nasal Cannula 2.00 03/27/21 19:59 37.8 03/27/21 19:55 Nasal Cannula 3.00 03/27/21 19:33 38.3 03/27/21 16:00 37.9 103 20 117/77 (90) 94 Nasal Cannula 2.00 I & O 03/28/21 07:00 Intake Total 6300 ml Output Total 2920 ml Balance 3380 ml Capillary Refill : Less Than 3 Seconds General Appearance: No Apparent Distress, Obese HEENT: Moist Mucous Membranes; No Scleral Icterus (L), No Scleral Icterus (R) Respiratory: Chest Non Tender, Lungs Clear, Normal Breath Sounds, No Accessory Muscle Use, No Respiratory Distress Cardiovascular: Regular Rate, Rhythm, No Murmur Peripheral Pulses: 2+ Radial Pulses (R), 2+ Radial Pulses (L) Gastrointestinal: soft, tenderness (at incisions), other (Inc c/d/i, drain with minimal serousanguinous output) Neurologic/Psychiatric: Alert, Oriented x3 Results Lab Microbiology 03/26/21 MRSA Screen - Final, Complete MRSA not isolated Assessment/Plan Assessment/Plan Assessment/Plan S/P Lap Anya Pt had a gangrenous GB, will send home with pain meds and ABX for 5 days. F/U in a week. Low fat diet. CONCHIS drain teaching DI BROWNE DO Mar 28, 2021 15:48
[2021-03-28 16:42] VITALS: BP 130/78
== END 2021-03-28 16:42 | disposition home or self-care (01) ==
LOC: EDUNIT# 11:41 → ER 11:43 → 4TH 14:45
PROVIDERS: ADMIT Surgery; ATTEND Surgery
DX: K80.12 Calculus of gallbladder with acute and chronic cholecystitis without obstruction (principal); K82.A1 Gangrene of gallbladder in cholecystitis; K82.8 Other specified diseases of gallbladder; I10 Essential (primary) hypertension; K59.09 Other constipation; F41.9 Anxiety disorder, unspecified; Z79.899 Other long term (current) drug therapy; E66.01 Morbid (severe) obesity due to excess calories; Z68.41 Body mass index [BMI] 40.0-44.9, adult
CPT/HCPCS: 36415; 71045; 71275; 74174; 76000; 80053; 83690; 85025; 87081; 87636; 88304; 93005; 96361; 96365; 96372; 96375